=== PATIENT | male | born 1940 | race Caucasian/White ===

== ENCOUNTER → 2017-10-01 | Outpatient (CLI) | payer MEDICARE | END | disposition home or self-care (01) | LOC: PCVCIMAG 13:04 | DX: I48.91 Unspecified atrial fibrillation (principal); I10 Essential (primary) hypertension; E78.00 Pure hypercholesterolemia, unspecified; I87.2 Venous insufficiency (chronic) (peripheral); R01.1 Cardiac murmur, unspecified; I77.9 Disorder of arteries and arterioles, unspecified; Z95.0 Presence of cardiac pacemaker; Z79.899 Other long term (current) drug therapy | CPT/HCPCS: 80061; 93005; 93325; 93351; G0463 ==

== ENCOUNTER → 2019-07-01 | Outpatient (CLI) | payer MEDICARE | END | disposition home or self-care (01) | LOC: PCVCCLINIC 15:49 | PROVIDERS: ATTEND Internal Medicine Cardiovascular Disease | DX: I35.0 Nonrheumatic aortic (valve) stenosis (principal); I87.2 Venous insufficiency (chronic) (peripheral); I44.2 Atrioventricular block, complete; E78.00 Pure hypercholesterolemia, unspecified; I48.21 Permanent atrial fibrillation; G47.33 Obstructive sleep apnea (adult) (pediatric); I10 Essential (primary) hypertension; R01.1 Cardiac murmur, unspecified; I48.0 Paroxysmal atrial fibrillation; Z95.0 Presence of cardiac pacemaker; Z79.899 Other long term (current) drug therapy; Z79.82 Long term (current) use of aspirin | CPT/HCPCS: 36415; 80061; 93280; G0463 ==

== ENCOUNTER → 2019-07-14 | Outpatient (CLI) | payer MEDICARE ==
[~2019-07-14] MED LIST: REGADENOSON 0.4 MG/5 ML DISP.SYRIN. IV ONE
--- NOTE | 2019-07-15 10:26 | PCVCIMAG ---
APPROVED REPORT Study performed: 07/14/2019 07:53:35 EXAM: Comprehensive 2D, Doppler, and color-flow Echocardiogram Patient Location: Echo lab Status: routine BSA: 2.26 HR: 60 bpmBP: 171/90 mmHg Rhythm: Pacemaker Other Information Study Quality: Adequate Risk Factors: Cardiac Risk Factors: HTN, Hyperlipidemia Indications Atrial Fibrillation Pacemaker ELROY, Pre op knee surgery. 2D Dimensions IVSd: 26.80 (7-11mm)LVOT Diam: 22.97 (18-24mm) LVDd: 44.60 mm PWd: 19.42 (7-11mm)Ascending Ao: 47.66 (22-36mm) LVDs: 29.59 (25-40mm) Left Atrium: 60.65 (27-40mm) Aortic Root: 41.65 mm LV Single Plane 4CH: 48.25 % LV Single Plane 2CH: 70.72 % Biplane EF: 59.9 % Volumes Left Atrial Volume (Systole) Single Plane 4CH: 148.77 mLSingle Plane 2CH: 136.47 mL LA ESV Index: 63.00 mL/m2 Aortic Valve AoV Peak Brandon.: 2.55 m/s AO Peak Gr.: 26.02 mmHgLVOT Max P.58 mmHg AO Mean Gr.: 16.39 mmHgLVOT Mean P.08 mmHg AO V2 Mean: 1.97 m/sLVOT Max V: 0.95 m/s AO V2 VTI: 57.26 cmLVOT Mean V: 0.69 m/s JAXSON (VTI): 1.39 [id number] V1 VTI: 19.20 cm JAXSON Vmax: 1.54 cm2 AI Vmax: 5.03 m/sSV (LVOT): 79.56 mL AI [place]: 2.44 m/s2 AI PHT: 599.34 ms Mitral Valve E/A Ratio: 0.8 MV E Max Brandon.: 0.92 m/s MV A Brandon.: 1.13 m/s Pulmonary Valve PV Peak Gr.: 1.70 mmHg Tricuspid Valve TR Peak Brandon.: 2.74 m/s TR Peak Gr.: 27.10 mmHg Left Ventricle The left ventricle is normal size. There is normal LV segmental wall motion. Moderate to severe concentric left ventricular hypertrophy. Left ventricular systolic function is normal. The left ventricular ejection fraction is within the normal range. LVEF is >55%. This study is not technically sufficient to allow evaluation of the LV diastolic function due to atrial fibrillation. Right Ventricle The right ventricle is normal size. The right ventricular systolic function is normal. Pacemaker lead is present in the right ventricle. Atria Left atrium is severely dilated. Right atrium is dilated. A pacemaker is seen in the right atrium consistent with history. Aortic Valve Aortic valve leaflets are moderately thickened. Mild aortic regurgitation. Peak gradient is 26mmHg. Mean gradient is 17mmHg. Calculated aortic valve is 1.4cm2. Mitral Valve Moderate mitral annular calcification. Mild mitral regurgitation. No evidence of mitral valve stenosis. Tricuspid Valve The tricuspid valve is normal in structure. Mild tricuspid regurgitation. Pulmonary artery pressure is 34mmhg. Pulmonic Valve The pulmonary valve is normal in structure. There is no pulmonic valvular regurgitation. Great Vessels Aortic root is dilated. 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 IVC is normal in size and collapses >50% with inspiration. Pericardium There is no pericardial effusion. <Conclusion> The left ventricle is normal size. Moderate to severe concentric left ventricular hypertrophy. LVEF is >55%. This study is not technically sufficient to allow evaluation of the LV diastolic function due to atrial fibrillation. The right ventricle is normal size. Pacemaker lead is present in the right ventricle. Left atrium is severely dilated. Right atrium is dilated. A pacemaker is seen in the right atrium consistent with history. Aortic valve leaflets are moderately thickened. Mild aortic regurgitation. Peak gradient is 26mmHg. Mean gradient is 17mmHg. Calculated aortic valve is 1.4cm2. Moderate mitral annular calcification. Mild mitral regurgitation. Mild tricuspid regurgitation. Pulmonary artery pressure is 34mmhg. Aortic root is dilated. There is no pericardial effusion. 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
--- NOTE | 2019-07-15 10:33 | PCVCIMAG ---
APPROVED REPORT Imaging Protocol: Rest Tc-99m/Stress Tc-99m 1 day Study performed: 07/14/2019 09:02:29 Indication: Afib, Dyspnea Patient Location: Out-Patient Stress Nurse: Janet Kent RN, Carmen Gale RN MA Tech:MARY LOU MayesMT Ht: 6 ft 0 in Wt: 230 lbs BSA: 2.26 m2 HR: 60 bpm BP: 151/90 mmHg BMI: 31.1 Rhythm: Atrial Fibrilation, Paced Medical History Medical History: Age, HLP, HTN, Afib, Aortic Stenosis, Pacemaker, Heart Murmur Medications: Amlodipine, Eliquis, ASA, Bystolic, Pravastatin Allergies: No known drug allergies Resting Data Rest SPECT myocardial perfusion imaging was performed in supine position 45 minutes following the intravenous injection of 10.9 mCi of Tc-99m Sestamibi. Time of rest injection: 0845 Date: 07/14/2019 Administration Route: IV Administration Site: Right AC Pharmacologic Stress Pharmacologic stress test was performed by injecting Regadenoson 0.4 mg IV push over 10-15 seconds immediately followed by the intravenous injection of 34.4 mCi of Tc-99m Sestamibi. Time of stress injection: 1010 Date: 07/14/2019 Administration Route: IV Administration Site: Right AC Gated Stress SPECT was performed 45 minutes after stress injection. The images were gated to evaluate regional wall motion and calculate left ventricular ejection fraction. Stress Test Details Stress Test: Pharmacologic stress testing performed using 0.4 mg of regadenoson per 5 mL given IV over 10 seconds. Reason for pharmacologic stress test: pacemaker, unstable gait. HRMax Heart Rate (APMHR): 142 bpm Resting HR: 60 bpmTarget HR (85% APMHR): 120 bpm Max HR Achieved: 60 bpm % of APMHR: 42 Recovery HR: 60 bpm BP Resting BP: 151/90 mmHg Max BP: 136/87 mmHg Recovery BP: 147/84 mmHg ECG Resting ECG: Atrial Fibrilation, Paced Stress ECG: Atrial Fibrilation, Paced Arrhythmia: VPC's Recovery ECG: Atrial Fibrilation, Paced Clinical Reason for Termination: Completed protocol Stress Symptoms: Lightheaded Symptoms resolved with caffeine. Stress ECG Conclusion non diagnostic Study Quality Study: Good Study Data Post stress, the left ventricular ejection was 48%.. SSS: 1 SRS: 5 SDS: 1 TID = 0.85. Perfusion No evidence of stress induced ischemia or prior myocardial infarction. Wall Motion Normal left ventricular size with no regional wall motion abnormalities. Nuclear Conclusion No evidence of stress induced ischemia or prior myocardial infarction. Post stress, the left ventricular ejection was 48%. No prior study available for comparison. Interpreted by: Neftaly Parker MD Electronically Approved: 07/14/2019 16:45:33 <Conclusion> non diagnostic
== END | disposition home or self-care (01) ==
LOC: PCVCIMAG 07:55
PROVIDERS: ATTEND Internal Medicine Cardiovascular Disease
DX: I08.3 Combined rheumatic disorders of mitral, aortic and tricuspid valves (principal); G47.33 Obstructive sleep apnea (adult) (pediatric); I48.21 Permanent atrial fibrillation; I11.9 Hypertensive heart disease without heart failure; R01.1 Cardiac murmur, unspecified; Z95.0 Presence of cardiac pacemaker
CPT/HCPCS: 78452; 93017; 93306; A9500; J2785